=== PATIENT | female | born 1965 | race Caucasian/White ===

== ENCOUNTER → 2019-10-14 | Outpatient (CLI) | payer OTHER | LOC: LAB 08:03 | PROVIDERS: ATTEND Nurse Practitioner | DX: R50.9 Fever, unspecified (principal); R05 Cough; Z20.828 Contact with and (suspected) exposure to other viral communicable diseases ==

== ENCOUNTER → 2021-02-06 | Outpatient (CLI) | payer BC, OTHER ==
[~2021-02-06] MED LIST: ADDERALL 20 MG20 MG PO; ALDACTONE100 MG PO; CIPROFLOXACIN500 M1 PO; FLAGYL500 MG PO; FLEXERIL PO; FLUOXETINE HCL40 MG PO; JUICE PLUS PO; MELOXICAM7.5 MG PO; MOBIC7.5 M1 PO; PREGABALIN75 MG PO; PROGESTERONE PO; PROZAC 20 MG20 MG PO; SPIRONOLACTONE100 M1 PO; TESSALON PERLE100 MG PO; TRETINOIN20 G1
[2021-02-06 14:19] LABS: HEMATOCRIT 41.3 % (37.0-47.0); HEMOGLOBIN 14.2 gm/dL (12.0-15.0); MCH 32.1 pg (26.0-34.0); MCHC 34.4 g/dL (28.0-37.0); MCV 93.3 fL (80.0-100.0); RBC 4.43 mil/uL (4.20-5.00); RDW 12.5 % (10.5-14.5); WBC 4.3 thou/uL (4.0-11.0)
[2021-02-06 14:21] LABS: URINE BILIRUBIN NEGATIVE (Negative); URINE BLOOD NEGATIVE (Negative); URINE CLARITY CLEAR; URINE COLOR YELLOW; URINE GLUCOSE-RANDOM* NEGATIVE (Negative); URINE KETONES NEGATIVE (Negative); URINE NITRITE-REFLEX NEGATIVE (Negative); URINE PROTEIN (DIPSTICK) NEGATIVE (Negative); URINE UROBILINOGEN 0.2 E.U./dl (0.2-1.0)
[2021-02-06 14:23] LABS: URINE LEUKOCYTES-REFLEX 1+ (Negative)
[2021-02-06 14:30] LABS: ALBUMIN 3.9 g/dL (3.4-5.0); CALCIUM 9.1 mg/dL (8.5-10.1); CREATININE 0.9 mg/dL (0.6-1.0); POTASSIUM 4.4 mmol/L (3.5-5.1)
[2021-02-06 14:35] LABS: BACTERIA-REFLEX 1-9 Few /HPF (None Seen); CASTS None Seen /LPF (None Seen); CRYSTALS None Seen /LPF (None Seen); SQUAMOUS 4-10 Moderate /LPF (0-3); URINE RBC None Seen /HPF (NONE SEEN); URINE WBC-REFLEX 0-5 Rare /HPF (0-5)
[2021-02-06 14:40] LABS: PROTIME 10.9 Seconds (10.5-12.1)
--- NOTE | 2021-02-06 15:14 | EKG ---
[place] [address] [facility] [place] [address] ELECTROCARDIOGRAM REPORT Name: KHUSHBU MORIN Room #: REG [facility]#: [id number] Admission: 02/06/21 Attend Phys: Zachery Caballero MD Discharge: Date of : 67 Report #: [id number] [facility] Test Date: 2021-02-06 Test Time: 13:38:44 Pat Name: KHUSHBU MORIN Department: Room: Gender: F Clinic Assistant: MIGUE : 1965 Requested By: Zachery Caballero Order Number: [id number] : Deon Pan Measurements Intervals [place] Rate: 76 P: 18 WI: 133 QRS: 67 QRSD: 93 T: 46 QT: 372 QTc: 419 Interpretive Statements Sinus rhythm Low voltage, precordial leads No previous ECG available for comparison Electronically Signed On 02-06-2021 15:14:21 CDT by Deon Pan [email or web address] <ELECTRONICALLY SIGNED> By: Deon Pan MD, [facility] 02/06/21 1514 1338 1338 Deon Pan MD, FACC /EPI
== END | disposition home or self-care (01) ==
LOC: PAC 07:30
PROVIDERS: ATTEND Orthopaedic Surgery
DX: M17.11 Unilateral primary osteoarthritis, right knee (principal); Z96.641 Presence of right artificial hip joint

== ENCOUNTER 2021-02-20 06:10 | Observation (INO) | payer BC, OTHER ==
[~2021-02-20] VITALS: Ht 160 cm; Wt 69.9 kg
[2021-02-20 08:20] VITALS: BP 112/70
--- NOTE | 2021-02-20 09:46 | NUR ---
THIS TRAINING LEAD NOTARIZED A DPOA COMPLETED BY THE PATIENT AND PLACED IT IN THE CHART.
--- NOTE | 2021-02-20 12:39 | NUR ---
PATIENT ADMITTED TO 4S S/P RIGHT HIP REPLACEMENT. A/O X 4 VERY SLEEPY. LIKES TO BE CALLED "DELL". ROOM AIR. RIGHT HIP ANITRA DRESSING/DRAIN. BILATERAL SCDS AND TEDS ON. ICE PACK TO RIGHT HIP. D5 1/2 NS @ 100 MLS/HR. LEFT HAND 20G IV. REGULAR DIET. D/C HOME PENDING PT EVAL. NORCO GIVEN 5/10 RIGHT HIP PAIN.
[2021-02-20 15:44] VITALS: BP 111/69
--- NOTE | 2021-02-20 16:40 | NUR ---
Hip OP. Spoke with raghu and brenda r/t dcp. Independent, a & o x 4, pleasant and able to make her needs known. few steps to enter and then we made everything on the main level for her for now. No hh or skilled rehab in past. Has outpt therapy set up with [facility] on 02/22/21. Raghu will be able to transport her home. Referral sent to provider plus. Will cont following as needed for dc needs. Patient mom is her as well on same unite has went over to visit her.
[2021-02-20 19:36] VITALS: BP 97/62
[2021-02-21 02:34] VITALS: BP 101/59
--- NOTE | 2021-02-21 02:49 | NUR ---
PT IS A/O X4 AND IS ON ROOM AIR. VSS AFEBRILE. C/O PAIN TO RIGHT HIP. PRN PAIN MEDICATION GIVEN DIRECTED. DRSG TO HIP IS C/D/I. ICE PACK APPLIED. MARY TORREZ, SCD'S, AND FALL PRECAUTIONS IN PLACE, CALL LIGHT IS WITHIN REACH. WILL CONTINUE TO MONITOR.
--- NOTE | 2021-02-21 09:30 | NUR ---
David visited with low at bedside. Provided plus delivered the FWW for dc today. She ready to go home and already has outpt rehab set up to start. She had question about extra assist for her mom and brother mental health support. CM provided CORRIE, private duty, rediscover and or pathways information. Sukumar her boyfriend will transport her home today after therapy.
[2021-02-21 11:07] VITALS: BP 101/59
--- NOTE | 2021-02-21 11:09 | NUR ---
ASSUMED PT CARE THIS AM. PT IS ALERT & ORIENTED X4. PT HAS IV SITE ON L HAND SALINE LOCKED. PT HAS BILATERAL [facility], SCD AND ICE PACK. PT IS ON ROOM AIR. GIVEN PAIN MEDICATION PRIOR WORKING WITH PHSYICAL THERAPY THIS AM. PER PHYSICAL THERAPY DID WELL AND SAFE FOR DC. OT GIVEN NEW PAIR OF [facility] PER PT REQUEST. PT TOLERATED DIET AND MEDICATION WELL. EDUCATED AND INFORMED PT ABOUT DC INSTRUCTIONS SUCH WHEN TO FOLLOW UP AND MEDICATION. REMOVED IV. AWAITING FOR PT FAMILY TO PICK HER UP. WILL CONTINUE TO MONITOR PT.
--- NOTE | 2021-02-23 08:40 | O ---
[facility] [place] [address] OPERATIVE REPORT Name: KHUSHBU MORIN Room #: 444-P MIKE Teixeira#: [id number] Admission: 02/20/21 Attend Phys: Zachery Caballero MD Discharge: 02/21/21 Date of : 67 Report #: [id number] THIS REPORT FOR: cc: Khoi Morales MD, Neal A. MD Abraham,Zachery Harrison MD ~ DATE OF SERVICE: 02/20/2021 PREOPERATIVE DIAGNOSIS: Right hip osteoarthritis. POSTOPERATIVE DIAGNOSIS: Right hip osteoarthritis. PROCEDURE: Right total hip arthroplasty. SURGEON: Zachery Caballero MD PAPER WINDER: Elisha Ham PA-C INDICATION FOR PAPER WINDER: Throughout the case, extensive retraction, manipulation of the hip including dislocation and reduction was required. This was afforded to me by my assistant operations manager. ANESTHESIA: LMA. IMPLANTS: A Echeverria [employer]hew size 50 R3 acetabular cup, size 10 high offset Synergy press-fit stem, a size 32+4 Oxinium head, and a single Accord cerclage cable for prophylactic femur fixation. ESTIMATED BLOOD LOSS: 150 mL. COMPLICATIONS: None. SPECIMENS: None. CONDITION UPON LEAVING THE OR: Stable. INDICATIONS FOR PROCEDURE: The patient is a 55-year-old female with severe right hip osteoarthritis who failed conservative measures for this and after discussion with her, she elected for right total hip arthroplasty. DESCRIPTION OF PROCEDURE: Risks, benefits, alternatives, and complications were discussed in detail with the patient including but not limited to risk of anesthesia, risk of damage to nerves, arteries, blood vessels, risk for infection, bleeding, risk for continued hip pain, leg length discrepancy, instability and need for reoperation. Informed consent was obtained from the patient. The right hip was appropriately marked in the preoperative holding [address] [address] OPERATIVE REPORT Name: KHUSHBU MORIN Room #: 444-P MIKE Teixeira#: [id number] Admission: 02/20/21 Attend Phys: Zachery Caballero MD Discharge: 02/21/21 Date of : 67 Report #: [id number] area. IV Ancef was given for preoperative antibiotics. She was brought to the operating room and placed in a supine position on the operating room table. LMA anesthesia was induced without complication. She was then placed in the left lateral decubitus position with the right hip uppermost. Right lower extremity were prepped and draped in normal sterile fashion. Timeout was performed properly identifying the patient and procedure as well as the instrumentation and implants. A standard posterior approach to the hip was made with 10 blade through the skin. Dissection was taken down to the fascia with Bovie cautery and a Acosta elevator was used to clean off the fascia. Fresh 10 blade was used to make a fascial incision. This was taken proximally and distally with curved Hilario scissor. Charnley retractor was placed. Trochanteric bursa was taken down with Bovie cautery. Piriformis tendon was identified, tagged and taken down with Bovie. Short external rotators were also taken down with Bovie cautery. Capsulotomy was made and capsule ends were tagged for later repair. Hip was dislocated. There was extensive osteoarthritic change of the femoral head. Femoral neck cut was made 1 cm proximal to the lesser trochanter based on preoperative templating and femoral head was removed. Deep acetabular retractors were placed. Labrum was removed sharply. Pulvinar was removed with Bovie cautery. Acetabulum was then sequentially reamed up to a size 50, at which point there was excellent bleeding cancellous bone. A size 49 trial cup was placed, found to have a good fit. Final size 50 R3 acetabular cup was placed and seated. One acetabular screw was placed for backup fixation and a polyethylene liner for a 32 head was placed. Attention was turned to the femur. This was reamed and broached up to a size 10, at which point the size 10 broach was stable, was trialed with a high offset neck and a size 32+0 head. Hip was reduced, taken through range of motion, found to be stable, found to be somewhat short on the right compared to left. Hip was dislocated and this was trialed again with a 32+4 head. Hip was reduced, taken through range of motion, found to be stable, found to have equal leg lengths. Hip was dislocated. Broach was removed. A single Accord cerclage cable was placed around the proximal femur for prophylactic fixation and a final size 10 high offset Synergy press-fit stem was placed. This was trialed again with a 32+4 head. Hip was reduced, taken through range of motion, found to be stable, found to have equal leg lengths. Hip was dislocated one last time and a final size 32+4 Oxinium head was placed. Hip was reduced, taken through range of motion, found to be stable, found to have equal leg lengths. Wound was thoroughly irrigated with normal saline. Periarticular injection consisting of morphine, ropivacaine, epinephrine, Toradol were placed around the hip joint capsule. A gram of vancomycin was placed deep in the joint. The capsule and piriformis were repaired with 0 FiberWire. Fascia was closed with 0 Vicryl. Skin was closed with 2-0 Vicryl and 3-0 Monocryl. Dermabond and ANITRA dressing were applied. The patient [facility] [address] [place] [address] OPERATIVE REPORT Name: KHUSHBU MORIN Room #: 444-P [facility] Yumiko Teixeira#: [id number] Admission: 02/20/21 Attend Phys: Zachery Caballero MD Discharge: 02/21/21 Date of : 67 Report #: [id number] tolerated this procedure well and went to recovery room under care of Anesthesia postoperatively. <ELECTRONICALLY SIGNED> By: Zachery Caballero MD 02/23/21 0840 1333 1347 Zachery Caballero MD /nt
== END 2021-02-21 11:47 | disposition home or self-care (01) ==
LOC: OR → TBA 06:10 → OR 07:30 → 4S 10:36 → OR 10:37 → 4S 02-21 11:47
PROVIDERS: ADMIT Orthopaedic Surgery; ATTEND Orthopaedic Surgery
DX: M16.11 Unilateral primary osteoarthritis, right hip (principal); M47.812 Spondylosis without myelopathy or radiculopathy, cervical region; M54.2 Cervicalgia; Z79.899 Other long term (current) drug therapy
CPT/HCPCS: 50010; 50101; 50382; 50414; 53000; 53078; 53368; 54118; 56524; 56527; 56528; 56530; 57095; 57103; 57496; 62110; 62900; 70005